=== PATIENT | female | born 1960 | race Asian ===

== ENCOUNTER 2019-04-02 12:51 | Emergency (ER) | payer OTHER ==
[~2019-04-02] VITALS: Ht 154.9 cm; Wt 60.0 kg
[2019-04-02 13:17] VITALS: BP 126/68
[2019-04-02] MEDS ORDERED: DEXAMETHASONE 4 MG TABLET PO STA (13:24)
--- NOTE | 2019-04-02 13:30 | PHYS DOC ---
Past Medical History Past Medical History: No Pertinent History Past Surgical History: , Hysterectomy Smoking Status: Never Smoker Alcohol Use: Rarely Adult General Chief Complaint Chief Complaint: FLU SYMPTOM HPI HPI Patient is a 58 year old female who presents with mild fever, sore throat, runny nose, cough that started last night around 9 PM. Patient has been able to drink water at home. Patient went for a walk in the cold yesterday. She states she did get her Flu shot. Complete ROS were reviewed and found to be within normal limits, except as documented in the HPI Current Medications Current Medications Current Medications Medications (Trade) Dose Ordered Sig/Jes Start Time Stop Time Status Last Admin Dose Admin Dexamethasone (Decadron) 10 mg 1X STAT 04/02/19 13:24 04/02/19 13:26 DC 04/02/19 13:42 10 MG Allergies Allergies Allergies Coded Allergies Type Severity Reaction Last Updated Verified No Known Drug Allergies 04/02/19 No Physical Exam Physical Exam Constitutional: Well developed, well nourished, no acute distress, non-toxic appearance. [] HENT: Normocephalic, atraumatic, bilateral external ears normal, oropharynx moist, erythema and 2+/4 tonsils with no oral exudates, nose normal. [] Eyes: PERRLA, EOMI, conjunctiva normal, no discharge. [] Neck: Normal range of motion, no tenderness, supple, no stridor. [] Cardiovascular:Heart rate regular rhythm, no murmur [] Lungs & Thorax: Bilateral breath sounds clear to auscultation [] Neurologic: Alert and oriented X 3, normal motor function, normal sensory function, no focal deficits noted. [] Psychologic: Affect normal, judgement normal, mood normal. [] Current Patient Data Vital Signs Vital Signs Date Time Temp Pulse Resp B/P (MAP) Pulse Ox O2 Delivery O2 Flow Rate FiO2 04/02/19 13:17 99.8 106 18 126/68 (87) 98 Room Air 99.8 Lab Values Laboratory Tests Test 04/02/19 13:30 Influenza Type A Antigen Negative (NEGATIVE) Influenza Type B Antigen Negative (NEGATIVE) EKG EKG [] Radiology/Procedures Radiology/Procedures [][facility] [address] [place] [address] IMAGING REPORT Signed PATIENT: NAMITA ALBERTS ACCOUNT: [id number] : 1960 LOCATION: ER AGE: 58 SEX: F EXAM STATUS: REG ER ORD. PHYSICIAN: SABI AUGUSTE APRN REASON: cough, fever PROCEDURE: CHEST PA & LATERAL CHEST PA LATERAL History: Cough and fever Comparison: None. Findings: Frontal and lateral views of chest were obtained. The cardiomediastinal silhouette is normal. Pulmonary vasculature is normal. The lungs are clear. No pleural effusion or pneumothorax is seen. There is no acute bone abnormality. IMPRESSION: No acute cardiopulmonary process. Electronically signed by: Zeferino Lacey MD (04/02/2019 1:40 PM) [id number] DICTATED and SIGNED BY: ZEFERINO LACEY MD DATE: 04/02/19 1340 Course & Med Decision Making Course & Med Decision Making Pertinent Labs and Imaging studies reviewed. (See chart for details) Will get Chest x-ray, flu and strep. Will give Decadron. Workup is unremarkable. Will d/c home. Dragon Disclaimer Dragon Disclaimer This electronic medical record was generated, in whole or in part, using a voice recognition dictation system. Departure Departure Impression: Primary Impression: Upper respiratory infection, viral Disposition: HOME, SELF-CARE Condition: STABLE Referrals: ANN MARIE HALLMAN MD (PCP) Patient Instructions: Upper Respiratory Infection, Adult Additional Instructions: Thank you for visiting [facility]. We appreciate you trusting us with your care. If any additional problems come up don't hesitate to return to visit us. Please follow up with your primary care provider so they can plan additional care if needed and know about the problem that you had. If symptoms worsen come back to the Emergency Department. Any concerning symptoms that start such as chest pain, shortness of air, weakness or numbness on one side of the b linda, running high fevers or any other concerning symptoms return to the ER. Please drink plenty of fluids. If unable to keep fluids down please return to ER. Please get Tylenol and Ibuprofen over the counter. Give each medication every 6 hours as directed by the medication labels. In order to utilize the peak of the medications stagger the medications to where the child is getting one of the medications every 3 hours. For example if you give Ibuprofen at 3 PM, you then give Tylenol at 6 PM and Ibuprofen again at 9 PM, and then Tylenol at midnight. Please get Zyrtec over the counter and take per label instructions for runny nose. SABI AUGUSTE APRN Apr 02, 2019 13:30
--- NOTE | 2019-04-02 13:43 | RAD ---
CHEST PA LATERAL History: Cough and fever Comparison: None. Findings: Frontal and lateral views of chest were obtained. The cardiomediastinal silhouette is normal. Pulmonary vasculature is normal. The lungs are clear. No pleural effusion or pneumothorax is seen. There is no acute bone abnormality. IMPRESSION: No acute cardiopulmonary process. Electronically signed by: Zeferino Evans MD (04/02/2019 1:40 PM) [id number]
[2019-04-02 14:23] LABS: INFLUENZA A PATIENT NEGATIVE (NEGATIVE); INFLUENZA B PATIENT NEGATIVE (NEGATIVE)
== END 2019-04-02 15:10 | disposition home or self-care (01) ==
LOC: ER 12:51
DX: J06.9 Acute upper respiratory infection, unspecified (principal); R50.9 Fever, unspecified; R09.89 Other specified symptoms and signs involving the circulatory and respiratory systems; L53.9 Erythematous condition, unspecified; R05 Cough; Z90.710 Acquired absence of both cervix and uterus; Z98.890 Other specified postprocedural states
CPT/HCPCS: 71046; 87070; 87804; 87880; 99284; J8540

== ENCOUNTER → 2020-09-22 | Outpatient (CLI) | payer OTHER | LOC: LAB 10:53 | PROVIDERS: ATTEND Internal Medicine Pulmonary Disease | DX: R05 Cough (principal); R09.81 Nasal congestion; Z20.822 Contact with and (suspected) exposure to COVID-19 | CPT/HCPCS: U0003; U0005 ==

== ENCOUNTER → 2021-01-23 | Outpatient (CLI) | payer OTHER ==
--- NOTE | 2021-01-23 12:43 | RAD ---
MR CERVICAL SPINE WO 01/23/2021 11:01 AM INDICATION: Cervical radiculopathy due to osteoarthritis COMPARISON: None available. TECHNIQUE: Multiplanar, multisequence MR imaging of the cervical spine performed without gadolinium based contrast. FINDINGS: There is 1 mm anterolisthesis of C3 on C4. There is retrolisthesis of C4 on C5 and C5 on C6 measuring 2 to 3 mm. There is 3 mm anterolisthesis of C7 on T1. There is reversal the normal cervical lordosis with kyphosis centered at C4-C5. There is facet fusion of C3-C4 on the right. Posterior fossa is nor mal in appearance. Vertebral artery flow voids are maintained. Skull base is intact. There is no prev ertebral edema. No paraspinal soft tissue abnormality. Tonsilloliths identified. Subcentimeter cyst i dentified in the left thyroid lobe. There is mild disc height loss at C4-C5 and C5-C6. Disc desiccation is identified all levels of cervi yehuda spine. Modic type I endplate degenerative changes identified at C4-C5. Moderate anterior marginal osteophytosis from C4-C5 through C6-C7. Cervical spinal cord signal intensity is normal in all seque nces. C2-C3: Disc is normal in configuration. Mild facet arthropathy. No neuroforaminal or spinal canal mariam nosis. Mild ligamentum flavum infolding. C3-C4: There is a posterior disc osteophyte complex asymmetric to the right. There is a right central disc protrusion. Moderate to severe right and mild left facet arthropathy. Moderate uncovertebral jeanie int disease. Moderate to severe right neural foraminal stenosis. Mild to moderate spinal canal stenos is with mild deformity cord without cord signal alteration. C4-C5: There is a posterior disc osteophyte complex. Mild facet arthropathy. Moderate uncovertebral j oint disease, right greater than left. Moderate right and mild left neuroforaminal stenosis. Mild spi nal canal stenosis, exacerbated by ligament of flavum infolding. No compression of the cord or cord s ignal alteration. C5-C6: There is a posterior disc osteophyte complex. There is a left central disc extrusion. Mild to moderate facet arthropathy. Moderate uncovertebral joint disease. Moderate severe bilateral neurofora va stenosis. Mild to moderate spinal canal stenosis with mild pulmonary ventral cord. No cord sign al alteration. C6-C7: Mild disc bulge. Mild facet and uncovertebral joint disease. Mild neuroforaminal stenosis. No spinal canal stenosis. C7-T1: Disc is normal in configuration. Mild to moderate facet of the. No neuroforaminal or spinal ca nal stenosis. IMPRESSION: Moderate degenerative changes of the cervical spine as described in detail above. Electronically signed by: Mandy Billingsley MD (01/23/2021 12:40 PM) [id number]
== END ==
LOC: MRI 11:00
PROVIDERS: ATTEND Family Medicine
DX: M47.22 Other spondylosis with radiculopathy, cervical region (principal); M50.323 Other cervical disc degeneration at C6-C7 level; M53.82 Other specified dorsopathies, cervical region; M48.8X2 Other specified spondylopathies, cervical region; M25.78 Osteophyte, vertebrae; M48.02 Spinal stenosis, cervical region; M43.12 Spondylolisthesis, cervical region; M40.292 Other kyphosis, cervical region; E04.1 Nontoxic single thyroid nodule; Z98.1 Arthrodesis status
CPT/HCPCS: 72141

== ENCOUNTER → 2021-04-01 | Outpatient (CLI) | payer OTHER | LOC: LAB 15:17 | PROVIDERS: ATTEND Internal Medicine Pulmonary Disease | DX: U07.1 COVID-19 (principal) | CPT/HCPCS: U0003 ==